=== PATIENT | male | born 1960 | race Caucasian/White ===

== ENCOUNTER 2018-10-16 08:34 | Outpatient (CLI) | payer BC ==
[2018-10-16 09:24] LABS: BASOPHILS % (AUTO) 0.3 % (0-1); EOSINOPHILS # (AUTO) 0.2 X10'3 (0-0.9); HEMATOCRIT 47.8 % (42.0-52.0); HEMOGLOBIN 15.8 g/dl (14.0-17.9); LYMPHOCYTES # (AUTO) 1.7 X10'3 (1.1-4.8); LYMPHOCYTES % (AUTO) 28.9 % (21-51); MEAN CORPUSCULAR HEMOGLOBIN 29.6 PG (27.0-31.0); MEAN CORPUSCULAR HGB CONC 33.2 g/dL (33.0-36.5); MEAN CORPUSCULAR VOLUME 89.4 FL (78-98); MEAN PLATELET VOLUME 8.6 FL (7.4-10.4); MONOCYTES # (AUTO) 0.6 X10'3 (0-0.9); MONOCYTES % (AUTO) 9.4 % (2-12); NEUTROPHILS # (AUTO) 3.5 X10'3 (1.8-7.7); NEUTROPHILS % (AUTO) 58.4 % (42-75); PLATELET COUNT 243 X10'3 (140-440); RED BLOOD COUNT 5.35 X10'6 (4.70-6.10); RED CELL DISTRIBUTION WIDTH 13.2 % (11.5-14.5)
[2018-10-16 09:40] LABS: ALANINE AMINOTRANSFERASE 25 U/L (12-78); ALBUMIN 4.1 G/DL (3.4-5.0); ALBUMIN/GLOBULIN RATIO 1.3 (1.1-1.5); ALKALINE PHOSPHATASE 68 IU/L (46-116); ANION GAP 8 (8-16); ASPARTATE AMINO TRANSFERASE 14 U/L (10-37); BILIRUBIN,TOTAL 0.7 MG/DL (0.1-1.0); BLOOD UREA NITROGEN 13 MG/DL (7-18); CALCIUM 9.2 MG/DL (8.5-10.1); CHLORIDE 106 MMOL/L (99-107); CREATININE 0.93 MG/DL (0.60-1.10); GLUCOSE 104 MG/DL (70-104); POTASSIUM 4.1 MMOL/L (3.5-5.1); SODIUM 141 MMOL/L (135-145); TOTAL CARBON DIOXIDE 26.7 MMOL/L (24-32); TOTAL PROTEIN 7.2 G/DL (6.4-8.2); eGFR 83 ML/MIN
[2018-10-16 09:44] LABS: PARTIAL THROMBOPLASTIN TIME 31 SECONDS (22-32)
== END 2018-10-16 23:59 | disposition home or self-care (01) ==
LOC: LAB 08:34
PROVIDERS: ATTEND Otolaryngology
DX: D69.1 Qualitative platelet defects (principal)
CPT/HCPCS: 36415; 80053; 85025; 85576; 85610; 85730

== ENCOUNTER 2025-01-26 11:42 | Day surgery (SDC) | payer MEDICARE, BC ==
[2025-01-22 08:40] LABS: MEAN PLATELET VOLUME 8.3 FL (7.4-10.4); RED CELL DISTRIBUTION WIDTH 14.1 % (11.5-14.5)
[2025-01-22 08:52] LABS: APTT 26 SECONDS (22-32); INR 1.1 INR
[2025-01-22 08:55] LABS: CHOL/HDL RATIO 2.8 (0.00-4.99); CREATININE 0.87 MG/DL (0.60-1.10); LDL CHOLESTEROL 59 MG/DL (50-100); TOTAL CARBON DIOXIDE 27.1 MMOL/L (24-32); eGFR 88 ML/MIN
[2025-01-26] VITALS (8 sets, daily range): BP systolic 116–144; BP diastolic 74–94; PULSE 61–72; RESP 11–20; O2SAT 92–97
[~2025-01-26] VITALS: Ht 180.3 cm; Wt 138.1 kg
[~2025-01-26 11:42] MED LIST: ASCO10004 PO; ASPI81TA52 PO; BENA10TA75 PO; CHOL500044 PO; EZET10TA48 PO; MAGN250T11 PO; MULT-1085 PO; PRAS25CA8 PO; ROSU5TAB51 PO; UBID10CA4 PO
--- NOTE | 2025-01-26 12:10 | ELECTROCARDIOGRAPH REPORT ---
[facility] Test Date: 2025-01-26 Test Time: 12:07:26 Pat Name: JUSTIN ZULETA Department: SHORT STAY 1ST FLOOR Patient ID: [id number] Room: Gender: M English Lecturer: RAJEEV : 1960 Requested By: JONA JEFFERSON Order Number: [id number] Reading MD: Dr. KATHARINE Cohen Measurements Intervals [place] Rate: 71 P: 25 LA: 151 QRS: -6 QRSD: 94 T: 22 QT: 390 QTc: 424 Interpretive Statements Sinus rhythm Abnormal R-wave progression, early transition Baseline wander in lead(s) V2 Electronically Signed On 01-26-2025 16:30:[address] KATHARINE Cohen Please click the below link to view image of tracing.
[2025-01-26] MEDS ORDERED: ALB0.5UD NEB (12:19)
[2025-01-26] MEDS ORDERED: ALBU8HFA INH (12:19)
[2025-01-26] MEDS ORDERED: fentaNYL/PF 50MCG/1 ML 2ML syringe ONE ×2 (12:46→14:19)
[2025-01-26] MEDS ORDERED: midazolam 1 mg/ML 2ml injection ONE (12:46)
[2025-01-26] MEDS ORDERED: LIDOcaine 1% (10mg/ml) 2ml vial ONE (12:47)
[2025-01-26] MEDS ORDERED: heparin 1,000unit/ml 10ml vial 10 ML ONE (12:47)
[2025-01-26] MEDS ORDERED: verapamil 2.5 mg/ml inj IV ONE (12:47)
[2025-01-26] MEDS ORDERED: nitroGLYCERIN 500mcg/5mL D5W 5 ML IV ONE (12:48)
[2025-01-26 13:30] LABS: MEAN PLATELET VOLUME 8.8 FL (7.4-10.4); RED CELL DISTRIBUTION WIDTH 14.2 % (11.5-14.5)
[2025-01-26] MEDS ORDERED: HYDROcodone/acetaminophen 10/325mg tab PO PRN (14:55)
[2025-01-26] MEDS ORDERED: HYDROcodone/acetaminophen 5mg/325mg tablet PO PRN (14:55)
--- NOTE | 2025-01-26 19:31 | CARDIAC CATH REPORT ---
Cardiac Cath Report Providers to CC CC: JONA JEFFERSON MD Procedure Comments: 1. Left Heart Catheterization 2. Selective Coronary Angiography 3. Right Radial Artery Access Brief History/Indications: 64yo man with HTN, HLD, Obesity, abnormal CA score with dyspnea on exertion referred for evaluation. Techniques: After informed consent was obtained, the patient was brought to the cardiac catheterization laboratory and prepped and draped in usual sterile fashion for left heart catheterization and other procedures mentioned above. The right wrist was anesthetized with 1% Lidocaine and the right radial artery accessed via the Seldinger technique after which a 6Fr sheath was placed. Through this a TIG was used to engage the left ventricle, the left coronary artery, and a JR4 to engage the right coronary artery. At the conclusion of the case the sheath was removed and hemostasis obtained with a VascBand. Findings Findings: HEMODYNAMICS: LV: 123/3 mmHg LVEDP: 9 mmHg Ao: 119/66, MAP 91 mmHg CORONARY ARTERIES: Rt Dominant LMCA: Luminal Irregularities LAD: 20-30% mid and distal stenosis Dx: Luminal Irregularities LCx: Luminal Irregularities OM1: Luminal Irregularities RCA: 30-40% ostial stenosis PDA: Luminal Irregularities PL: Luminal Irregularities Results Results: 1. No significant obstructive CAD 2. RRA Access, closed with VascBand RECOMMENDATIONS: 1. Recommend uptitration of max-tolerated GDMT MANGO JEFFERSON MD Jan 26, 2025 19:31
== END 2025-01-26 16:50 | disposition home or self-care (01) ==
LOC: SSTAY O 11:42
PROVIDERS: ATTEND Student in an Organized Health Care Education/Training Program
DX: R94.39 Abnormal result of other cardiovascular function study (principal); I25.10 Atherosclerotic heart disease of native coronary artery without angina pectoris; I25.84 Coronary atherosclerosis due to calcified coronary lesion; I10 Essential (primary) hypertension; E78.5 Hyperlipidemia, unspecified; Z79.01 Long term (current) use of anticoagulants; Z79.899 Other long term (current) drug therapy; G47.33 Obstructive sleep apnea (adult) (pediatric); Z88.6 Allergy status to analgesic agent
CPT/HCPCS: 36415; 80048; 80061; 83695; 85025; 85610; 85730; 93005; 93458; 99152; 99153; A6258; A6402; C1894; J1644; J2003; J2250; J3010; J3490; J7030; Q0163; Q9967; Z7610; A6449

== ENCOUNTER 2025-03-31 08:05 | Outpatient (CLI) | payer MEDICARE, BC ==
[~2025-03-31] VITALS: Ht 180.3 cm; Wt 136.1 kg
[~2025-03-31 08:05] MED LIST changes: +ALB0.5UD NEB; +ALBU8HFA INH; -EZET10TA48 PO; +EZET10TA80 PO
[2025-03-31 08:46] LABS: TOTAL HEMOGLOBIN 16.8 G/dl (13.5-17.5)
[2025-03-31] MEDS: albuterol 2.5 MG/3 ML nebule NEB ONE (09:30)
[2025-03-31 09:32] VITALS: PULSE 82; RESP 16; O2SAT 98
[2025-03-31 09:45] VITALS: PULSE 87; RESP 16
--- NOTE | 2025-03-31 14:50 | PROCEDURE NOTE - Respiratory ---
Procedure Note-Respiratory Providers to CC Copies To 1: LOBO VALDEZ MD Procedure Name: This is a complete pulmonary function study dated March 31, 2025. Hemoglobin measurement was done as part of the study. Spirometry measurements: Both the forced vital capacity and the FEV1 are in the lower range of normal. The FEV1 ratio is normal. The flow rate measurements are normal with the exception of reduced FEF 25%. After inhaled bronchodilator was administered, there is very slight improvement in some of the flow rate measurements. Lung volume measurements: The total lung capacity and functional residual capacity measurements are normal. There is slight elevation in the residual v olume. Lung diffusion measurement: The DLCO measurement is normal. It is noted that the KVO measurement and the alveolar volume measurements are normal. It is noted that the hemoglobin measurement is normal. Airway resistance measurement: The airway resistance is normal. Overall conclusion: Normal or very near normal pulmonary function study. Spirometry results suggest very minimal obstructive ventilatory defect which seems to respond to inhaled bronchodilator. However , the obstructive airway process appears to be exceedingly mild. Lung volume measurements are normal. There is no evidence for restrictive lung disease. The lung diffusion is normal. We have no previous studies for comparison. It is recommended that this patient abstain from cigarette smoking and/or marijuana smoking. ROBERT SAMANO MD Mar 31, 2025 14:50
== END 2025-03-31 23:59 | disposition home or self-care (01) ==
LOC: RT 08:05
PROVIDERS: ATTEND Internal Medicine Critical Care Medicine
DX: J44.9 Chronic obstructive pulmonary disease, unspecified (principal); R06.02 Shortness of breath; G47.33 Obstructive sleep apnea (adult) (pediatric)
CPT/HCPCS: 85018; 94060; 94727; 94729; 94760